=== PATIENT | male | born 1955 | race Caucasian/White ===

== ENCOUNTER 2016-11-17 06:37 | Day surgery (SDC) | payer OTHER ==
[~2016-11-17] VITALS: Ht 167.6 cm; Wt 90.7 kg
[~2016-11-17 06:37] MED LIST: LISINOPRIL/HYDR1 TAB PO; PREVACID15 MG PO; PREVACID30 MG PO
[2016-11-17] MEDS ORDERED: DOXYCYCLINE HY100 MG PO (08:03)
[2016-11-17] MEDS ORDERED: ZOCOR20 MG PO (08:03)
[2016-11-17] MEDS ORDERED: METOCLOPRAMIDE10 M3 PO (08:03)
[2016-11-17] MEDS ORDERED: LANSOPRAZOLE15 MG PO (08:03)
[2016-11-17] MEDS ORDERED: GEMFIBROZIL600 M1 PO (08:03)
[2016-11-17] MEDS ORDERED: METFORMIN HCL1000 MG PO (08:03)
[2016-11-17] MEDS ORDERED: HCTZ/LISINOPRIL1 TA2 PO (08:03)
[2016-11-17] MEDS ORDERED: ALLOPURINOL300 M1 PO (08:03)
[2016-11-17] MEDS ORDERED: PROPOFOL 200 MG/20 ML VIAL IV ONE ×2 (08:56→10:16)
[2016-11-17] MEDS ORDERED: DEXAMETHASONE 4 MG/ML VIAL IVP ONE (08:56)
[2016-11-17] MEDS ORDERED: LIDOCAINE 2% 100 MG/5 ML SYR IVP ONE (08:56)
[2016-11-17] MEDS ORDERED: ONDANSETRON 4 MG/2 ML VIAL IVP ONE (08:56)
[2016-11-17] MEDS ORDERED: SEVOFLURANE 250 ML BTL INH ONE (08:56)
[2016-11-17] MEDS ORDERED: KETOROLAC 30 MG/ML VIAL IVP ONE (08:56)
[2016-11-17] MEDS ORDERED: BUPIVACAINE-MPF 0.25% 30 ML VIAL INJ ONE (08:57)
[2016-11-17] MEDS ORDERED: MIDAZOLAM 2 MG/2 ML VIAL ONE (08:58)
[2016-11-17] MEDS ORDERED: fentaNYL 0.05 MG/ML VIAL ONE (08:59)
[2016-11-17] MEDS ORDERED: ceFAZolin 1,000 MG VIAL ONE (09:09)
[2016-11-17] MEDS ORDERED: BLOOD GLUCOSE MONITORING 1 DEV DEV FS SCH (09:45)
[2016-11-17] MEDS ORDERED: ONDANSETRON 4 MG/2 ML VIAL IVP PRN (09:45)
[2016-11-17] MEDS ORDERED: NACL 0.9% 1,000 ML IV SCH (10:27)
[2016-11-17] MEDS ORDERED: MORPHINE SULFATE 4 MG/ML SYR IV PRN (10:30)
[2016-11-17] MEDS ORDERED: ONDANSETRON 4 MG/2 ML VIAL IV PRN (10:30)
[2016-11-17] MEDS ORDERED: HYDROmorphone 1 MG/ML AMP IVP PRN (10:30)
[2016-11-17] MEDS ORDERED: HYDROcodone/APAP 5/325 MG 1 TAB TAB PO PRN (10:30)
[2016-11-17] MEDS ORDERED: MORPHINE SULFATE 2 MG/ML SYR IVP PRN (10:30)
[2016-11-17] MEDS ORDERED: ACETAMINOPHEN 325 MG TAB PO PRN (10:30)
[2016-11-17] MEDS: HYDROmorphone 1 MG/ML AMP IVP PRN ×2 (10:38→10:48)
[2016-11-17] MEDS ORDERED: HYDROmorphone PFS 2 MG/ML SYR ONE (11:25)
== END 2016-11-17 13:00 | disposition home or self-care (01) ==
LOC: MDS 06:37 → MMU 06:38 → MDS 13:00
PROVIDERS: ATTEND Surgery
DX: K43.9 Ventral hernia without obstruction or gangrene (principal); I12.9 Hypertensive chronic kidney disease with stage 1 through stage 4 chronic kidney disease, or unspecified chronic kidney disease; E11.22 Type 2 diabetes mellitus with diabetic chronic kidney disease; N18.9 Chronic kidney disease, unspecified; E66.3 Overweight; K21.9 Gastro-esophageal reflux disease without esophagitis; I63.9 Cerebral infarction, unspecified; E78.5 Hyperlipidemia, unspecified; Z90.13 Acquired absence of bilateral breasts and nipples; F03.90 Unspecified dementia, unspecified severity, without behavioral disturbance, psychotic disturbance, mood disturbance, and anxiety; F17.210 Nicotine dependence, cigarettes, uncomplicated; Z85.828 Personal history of other malignant neoplasm of skin; Z90.49 Acquired absence of other specified parts of digestive tract
CPT/HCPCS: 49560; 49568; 71010; 82948; 93005; C1781; J0690; J1100; J1170; J1885; J2001; J2250; J2270; J2405; J2704; J3010; J3490

== ENCOUNTER 2021-03-25 07:37 | Day surgery (SDC) | payer OTHER ==
[~2021-03-25 07:37] MED LIST changes: +ALLO300T28 PO; +DOXY100C9 PO; +GEMF-65 PO; +HYDR-39 PO; +LANS15EC31 PO; -LISINOPRIL/HYDR1 TAB PO; +METF-1022 PO; +METO10TA10 PO; -PREVACID15 MG PO; -PREVACID30 MG PO; +SIMV20TA1 PO
[2021-03-25] MEDS ORDERED: MIDAZOLAM 5 MG/5 ML VIAL ONE (08:47)
[2021-03-25] MEDS ORDERED: fentaNYL citrate 0.05 MG/ML VIAL ONE (08:47)
[2021-03-25] MEDS ORDERED: MIDAZOLAM 2 MG/2 ML VIAL IVP ONE (09:40)
== END 2021-03-25 10:07 | disposition home or self-care (01) ==
LOC: MMU 07:37 → MDS 07:37
PROVIDERS: ATTEND Internal Medicine Gastroenterology
DX: K21.9 Gastro-esophageal reflux disease without esophagitis (principal); K22.70 Barrett's esophagus without dysplasia; I10 Essential (primary) hypertension; F41.9 Anxiety disorder, unspecified; K44.9 Diaphragmatic hernia without obstruction or gangrene; E78.5 Hyperlipidemia, unspecified; E11.9 Type 2 diabetes mellitus without complications; M10.9 Gout, unspecified; Z90.49 Acquired absence of other specified parts of digestive tract; Z79.84 Long term (current) use of oral hypoglycemic drugs; Z79.899 Other long term (current) drug therapy
CPT/HCPCS: 43235; J2250; J3010